=== PATIENT | female | born 1985 | race Caucasian/White ===

== ENCOUNTER 2020-01-04 18:32 | Emergency (ER) | payer BC ==
[2020-01-04 18:37] VITALS: PULSE 89; RESP 18; TEMP 98
[2020-01-04 18:39] VITALS: BP 143/77
[2020-01-04] MEDS ORDERED: RABIES IMMUNE GLOB 300 UNIT/ML 1 ML VIAL IM ONE (18:53)
[2020-01-04] MEDS ORDERED: RABIES VACCINE (PCEC) 2.5 UNIT KIT IM ONE (18:53)
[2020-01-04] MEDS ORDERED: RABIES IMMUNE GLOB 300 UNIT/ML 5 ML VIAL IM ONE (19:00)
--- NOTE | 2020-01-04 19:01 | ED ---
General Adult HPI - General Chief complaint: Recheck/Abnormal Lab/Rx Stated complaint: bat exposure Time Seen by Provider: 01/04/20 18:40 Source: patient, RN notes reviewed, old records reviewed Mode of arrival: ambulatory Limitations: no limitations - History of Present Illness Initial comments: Patient is a pleasant 34-year-old female who presents emergency department today for concern for about exposure. Patient reports that she woke up to a pack in her room proximally 5 days ago. Patient reports they called the health department and were finally able to get a hold of them today and were told to come here for rabies vaccines a post exposure prophylaxis. Patient is also 10 weeks . She called her OB who recommended treatment. Patient states that she has no complaints herself of symptoms. Patient has had no issues with her at this time. - Related Data Allergies Allergy/AdvReac Type Severity Reaction Status Date / Time No Known Allergies Allergy Verified 01/04/20 18:37 Review of Systems ROS Statement: Those systems with pertinent positive or pertinent negative responses have been documented in the HPI. ROS Other: All systems not noted in ROS Statement are negative. Past Medical History Past Medical History: No Reported History History of Any Multi-Drug Resistant Organisms: None Reported Past Surgical History: No Surgical Hx Reported Smoking Status: Never smoker Past Alcohol Use History: None Reported Past Drug Use History: None Reported General Exam - General Exam Comments Initial Comments: 34 -year-old female. No distress. Limitations: no limitations General appearance: alert, in no apparent distress Head exam: Present: atraumatic, normocephalic, normal inspection Eye exam: Present: normal appearance, PERRL, EOMI. Absent: scleral icterus, conjunctival injection, periorbital swelling ENT exam: Present: normal exam, mucous membranes moist Neck exam: Present: normal inspection. Absent: tenderness, meningismus, lymphadenopathy Respiratory exam: Present: normal lung sounds bilaterally. Absent: respiratory distress, wheezes, rales, rhonchi, stridor Cardiovascular Exam: Present: regular rate, normal rhythm, normal heart sounds. Absent: systolic murmur, diastolic murmur, rubs, gallop, clicks GI/Abdominal exam: Present: soft, normal bowel sounds. Absent: distended, tenderness, guarding, rebound, rigid Extremities exam: Present: normal inspection, full ROM, normal capillary refill. Absent: tenderness, pedal edema, joint swelling, calf tenderness Back exam: Present: normal inspection Neurological exam: Present: alert, oriented X3, CN II-XII intact Psychiatric exam: Present: normal affect, normal mood Skin exam: Present: warm, dry, intact, normal color. Absent: rash Course Vital Signs 01/04/20 18:35 Temperature 98.0 F Pulse Rate 89 Respiratory 18 Rate Blood Pressure 143/77 O2 Sat by Pulse 99 Oximetry Medical Decision Making - Medical Decision Making 34-year-old female is currently 10 weeks presents emergency department today for rabies vaccine after bat exposure in her bedroom 5 days ago. She is no known bite site. Patient is given rabies immunoglobulin and rabies vaccine. Discussed this does not him to be contraindicated in . Patient understands treatment plan. Discussed following up with primary care physician and will write the Patient for outpatient vaccines at days 3,7 and 14. Disposition Clinical Impression: Exposure to bat without known bite Disposition: HOME SELF-CARE Condition: Good Instructions (If sedation given, give patient instructions): Rabies Vaccine (ED), Rabies (ED) Additional Instructions: Patient is to follow-up with outpatient [facility] labs to have the rabies vaccine administered on days 3,7 and 14. Is patient prescribed a controlled substance at d/c from ED?: No Referrals: Cherry Choudhury DO [Primary Care Provider] - 1-2 days Time of Disposition: 19:09
== END 2020-01-04 20:03 | disposition home or self-care (01) ==
LOC: EC 18:32
DX: Z20.828 Contact with and (suspected) exposure to other viral communicable diseases (principal); Z20.3 Contact with and (suspected) exposure to rabies; Z23 Encounter for immunization
CPT/HCPCS: 90375; 90471; 90675; 96372; 99284